=== PATIENT | male | born 1970 | race Caucasian/White ===

== ENCOUNTER 2022-06-27 20:30 | Inpatient (IN) | payer SELFPAY ==
[2022-06-27] MEDS ORDERED: SODIUM CHLORIDE 0.9% 500 ML INFUS.BAG IV ONE (21:54)
[2022-06-27 22:47] LABS: MEAN CELL VOLUME 54.4 fl (80-96); MEAN PLT VOLUME 7.6 fl (7.5-11.1); PLATELET COUNT 371.1 10^3/uL (134-434); RBC 2.72 10^6/uL (4.00-5.60); WHITE BLOOD COUNT 7.8 10^3/uL (4.0-10.8)
[2022-06-27 22:50] LABS: MCH 16.3 pg (25.7-33.7)
[2022-06-27 22:51] LABS: HEMOGLOBIN 4.4 G/dL (11.7-16.9)
[2022-06-27 22:52] LABS: HEMATOCRIT 14.8 % (35.4-49)
[2022-06-27] MEDS ORDERED: CEFTRIAXONE 1 GM in DEXTROSE 5%-WATER - 50 ML IVPB ONE (23:00)
[2022-06-27 23:05] LABS: ANISOCYTOSIS 2+; PLATELET ESTIMATE ADEQUATE; SICKELED CELLS FEW
[2022-06-27 23:07] LABS: ALBUMIN 3.7 g/dl (3.4-5.0); BILIRUBIN,TOTAL 1.2 mg/dl (0.2-1); CALCIUM 9.2 mg/dl (8.5-10); CREATININE 1.6 mg/dl (0.55-1.3)
[2022-06-27] MEDS ORDERED: cefTRIAXone SODIUM 1 GM VIAL ONE (23:22)
[2022-06-28 02:34] VITALS: BMI 26.9
[2022-06-28] MEDS: TAMSULOSIN HCL 0.4 MG CAP PO SCH (09:00)
[2022-06-28] MEDS: CEFTRIAXONE 1 GM in DEXTROSE 5%-WATER - 50 ML IVPB SCH (11:23)
[2022-06-28 14:11] LABS: HEMATOCRIT 19.6 % (35.4-49); HEMOGLOBIN 6.1 G/dL (11.7-16.9); MCHC 31.2 g/dl (32.0-35.9); MEAN PLT VOLUME 7.7 fl (7.5-11.1); PLATELET COUNT 363.4 10^3/uL (134-434); RBC 3.22 10^6/uL (4.00-5.60); RDW 29.1 % (11.9-15.9); WHITE BLOOD COUNT 9.5 10^3/uL (4.0-10.8)
[2022-06-28 14:20] LABS: ALBUMIN 3.5 g/dl (3.4-5.0); BILIRUBIN,TOTAL 0.9 mg/dl (0.2-1); CALCIUM 8.3 mg/dl (8.5-10); CREATININE 1.3 mg/dl (0.55-1.3); TOT PROT 5.9 g/dl (6.4-8.2)
[2022-06-28] MEDS ORDERED: ACETAMINOPHEN 325 MG TABLET (FP) PO PRN (14:43)
[2022-06-28 14:45] LABS: ANISOCYTOSIS 2+; PLATELET ESTIMATE ADEQUATE
[2022-06-29 00:49] LABS: BASO % 0.5 % (0-2.0); EOS % 0.4 % (0-4.5); HEMATOCRIT 20.6 % (35.4-49); LYMPH % 18.9 % (8-40); MCHC 30.7 g/dl (32.0-35.9); MEAN CELL VOLUME 60.1 fl (80-96); MEAN PLT VOLUME 8.3 fl (7.5-11.1); MONO % 12.7 % (3.8-10.2); NEUT % 67.5 % (42.8-82.8); PLATELET COUNT 287 10^3/uL (134-434); RBC 3.43 M/mm3 (4.00-5.60); WHITE BLOOD COUNT 8.1 K/mm3 (4.0-10.0)
[2022-06-29 00:59] LABS: MCH 18.5 pg (25.7-33.7)
[2022-06-29 01:02] LABS: HEMOGLOBIN 6.3 GM/dL (11.7-16.9)
[2022-06-29] MEDS: TAMSULOSIN HCL 0.4 MG CAP PO SCH (08:29)
[2022-06-29] MEDS: CEFTRIAXONE 1 GM in DEXTROSE 5%-WATER - 50 ML IVPB SCH (09:14)
[2022-06-29 09:32] LABS: BASO % 0.7 % (0-2.0); EOS % 0.3 % (0-4.5); HEMATOCRIT 23.9 % (35.4-49); HEMOGLOBIN 7.4 GM/dL (11.7-16.9); LYMPH % 14.1 % (8-40); MCHC 31.1 g/dl (32.0-35.9); MEAN PLT VOLUME 8.2 fl (7.5-11.1); MONO % 11.6 % (3.8-10.2); NEUT % 73.3 % (42.8-82.8); PLATELET COUNT 288 10^3/uL (134-434); RBC 3.85 M/mm3 (4.00-5.60); RDW 30.9 % (11.9-15.9); WHITE BLOOD COUNT 7.3 K/mm3 (4.0-10.0)
[2022-06-29 09:42] LABS: MCH 19.3 pg (25.7-33.7)
[2022-06-29 09:47] LABS: ALBUMIN 3.2 g/dl (3.4-5.0); CALCIUM 8.7 mg/dL (8.5-10.1)
[2022-06-29 09:50] LABS: BLOOD UREA NITROGEN 18.8 mg/dL (7-18)
[2022-06-29 09:52] LABS: TOT PROT 5.8 g/dl (6.4-8.2)
[2022-06-29 09:53] LABS: CREATININE 1.2 mg/dL (0.55-1.3)
[2022-06-29 09:54] LABS: BILIRUBIN,TOTAL 0.9 mg/dL (0.2-1)
[2022-06-29] MEDS ORDERED: SODIUM CHLORIDE 0.45%/POT 20 MEQ/1,000 ML INFUS.BAG IV SCH (13:45)
[2022-06-29] MEDS ORDERED: SODIUM CHLORIDE 0.9% 500 ML INFUS.BAG IV ONE (18:50)
[2022-06-30] MEDS: CEFTRIAXONE 1 GM in DEXTROSE 5%-WATER - 50 ML IVPB SCH (09:57)
[2022-06-30] MEDS: TAMSULOSIN HCL 0.4 MG CAP PO SCH (09:57)
[2022-06-30 10:49] LABS: BASO % 0.9 % (0-2.0); EOS % 1.3 % (0-4.5); HEMATOCRIT 23.8 % (35.4-49); HEMOGLOBIN 7.3 GM/dL (11.7-16.9); LYMPH % 14.8 % (8-40); MCHC 30.6 g/dl (32.0-35.9); MEAN CELL VOLUME 62.2 fl (80-96); MEAN PLT VOLUME 8.2 fl (7.5-11.1); MONO % 11.2 % (3.8-10.2); NEUT % 71.8 % (42.8-82.8); PLATELET COUNT 295 10^3/uL (134-434); RBC 3.82 M/mm3 (4.00-5.60); RDW 31.5 % (11.9-15.9); WHITE BLOOD COUNT 6.9 K/mm3 (4.0-10.0)
[2022-06-30 11:26] LABS: CALCIUM 8.6 mg/dL (8.5-10.1)
[2022-06-30 11:27] LABS: ALBUMIN 3.3 g/dl (3.4-5.0)
[2022-06-30 11:32] LABS: BILIRUBIN,TOTAL 0.7 mg/dL (0.2-1); TOT PROT 5.8 g/dl (6.4-8.2)
[2022-06-30] MEDS ORDERED: ONDANSETRON 4 MG/2 ML VIAL IVPUSH PRN ×2 (12:44→15:32)
[2022-06-30] MEDS ORDERED: LACTATED RINGERS SOLUTION 1,000 ML IV SCH (12:45)
[2022-06-30] MEDS ORDERED: MIDAZOLAM HCL 2 MG/2 ML SINGLE DOSE VIAL ONE (13:30)
[2022-06-30] MEDS ORDERED: PROPOFOL 40 ML ONE (13:30)
[2022-06-30] MEDS ORDERED: SUCCINYLCHOLINE CHLORIDE 200 MG/10 ML SYRINGE ONE (13:52)
[2022-06-30] MEDS ORDERED: ONDANSETRON 4 MG/2 ML VIAL ONE (14:22)
[2022-06-30] MEDS ORDERED: DEXAMETHASONE SOD PHOSPHATE 4 MG/1 ML VIAL ONE (14:22)
[2022-06-30] MEDS ORDERED: GLYCOPYRROLATE 0.2 MG/1 ML VIAL ONE (14:25)
[2022-06-30] MEDS ORDERED: PROPOFOL 20 ML ONE (14:29)
[2022-07-01] MEDS: TAMSULOSIN HCL 0.4 MG CAP PO SCH (09:26)
[2022-07-01] MEDS: CEFTRIAXONE 1 GM in DEXTROSE 5%-WATER - 50 ML IVPB SCH (09:26)
[2022-07-01 09:53] LABS: BASO % 0.4 % (0-2.0); EOS % 0.7 % (0-4.5); HEMATOCRIT 25.2 % (35.4-49); HEMOGLOBIN 7.8 GM/dL (11.7-16.9); LYMPH % 15.2 % (8-40); MCHC 30.7 g/dl (32.0-35.9); MEAN CELL VOLUME 62.9 fl (80-96); MEAN PLT VOLUME 8.3 fl (7.5-11.1); MONO % 9.4 % (3.8-10.2); NEUT % 74.3 % (42.8-82.8); PLATELET COUNT 312 10^3/uL (134-434); RBC 4.01 M/mm3 (4.00-5.60); RDW 32.1 % (11.9-15.9); WHITE BLOOD COUNT 9.3 K/mm3 (4.0-10.0)
[2022-07-01 09:54] LABS: MCH 19.3 pg (25.7-33.7)
[2022-07-01 11:21] LABS: BLOOD UREA NITROGEN 15.2 mg/dL (7-18); CALCIUM 8.6 mg/dL (8.5-10.1); MAGNESIUM 2.4 mg/dL (1.8-2.4)
[2022-07-01 11:22] LABS: ALBUMIN 3.2 g/dl (3.4-5.0)
[2022-07-01 11:24] LABS: PHOSPHOROUS 4.3 mg/dL (2.5-4.9)
[2022-07-01 11:25] LABS: CREATININE 0.9 mg/dL (0.55-1.3)
[2022-07-01 11:26] LABS: BILIRUBIN,TOTAL 0.7 mg/dL (0.2-1)
[2022-07-01 12:56] LABS: ANISOCYTOSIS 2+; MACROCYTOSIS 0; OVALOCYTE 2+; TARGET CELLS 1+
[2022-07-02] MEDS: TAMSULOSIN HCL 0.4 MG CAP PO SCH (08:09)
[2022-07-02 09:08] LABS: BASO % 0.4 % (0-2.0); EOS % 1.1 % (0-4.5); HEMATOCRIT 27.4 % (35.4-49); HEMOGLOBIN 8.2 GM/dL (11.7-16.9); LYMPH % 15.4 % (8-40); MCHC 30.1 g/dl (32.0-35.9); MEAN PLT VOLUME 8.7 fl (7.5-11.1); MONO % 4.6 % (3.8-10.2); NEUT % 78.5 % (42.8-82.8); PLATELET COUNT 324 10^3/uL (134-434); RBC 4.34 M/mm3 (4.00-5.60); RDW 32.4 % (11.9-15.9); WHITE BLOOD COUNT 8.3 K/mm3 (4.0-10.0)
[2022-07-02 09:13] LABS: MCH 18.9 pg (25.7-33.7)
[2022-07-02 09:27] LABS: CALCIUM 8.5 mg/dL (8.5-10.1)
[2022-07-02 09:28] LABS: BLOOD UREA NITROGEN 17.3 mg/dL (7-18)
[2022-07-02] MEDS: CEFTRIAXONE 1 GM in DEXTROSE 5%-WATER - 50 ML IVPB SCH (10:00)
[2022-07-03] MEDS: TAMSULOSIN HCL 0.4 MG CAP PO SCH (08:36)
[2022-07-03] MEDS: CEFTRIAXONE 1 GM in DEXTROSE 5%-WATER - 50 ML IVPB SCH (09:55)
[2022-07-03 12:01] LABS: EOS % 1.6 % (0-4.5); HEMATOCRIT 26.4 % (35.4-49); HEMOGLOBIN 8.2 GM/dL (11.7-16.9); LYMPH % 12.1 % (8-40); MCHC 30.9 g/dl (32.0-35.9); MEAN CELL VOLUME 63.1 fl (80-96); MEAN PLT VOLUME 8.6 fl (7.5-11.1); MONO % 10.7 % (3.8-10.2); NEUT % 74.6 % (42.8-82.8); PLATELET COUNT 325 10^3/uL (134-434); RBC 4.19 M/mm3 (4.00-5.60); RDW 32.1 % (11.9-15.9); WHITE BLOOD COUNT 8.2 K/mm3 (4.0-10.0)
[2022-07-03 12:13] LABS: MCH 19.5 pg (25.7-33.7)
[2022-07-03 12:51] LABS: CALCIUM 8.7 mg/dL (8.5-10.1)
[2022-07-03 12:52] LABS: BLOOD UREA NITROGEN 17.7 mg/dL (7-18)
[2022-07-04] MEDS: TAMSULOSIN HCL 0.4 MG CAP PO SCH (08:48)
[2022-07-04 10:22] LABS: BASO % 1.5 % (0-2.0); EOS % 2.5 % (0-4.5); HEMATOCRIT 29.6 % (35.4-49); HEMOGLOBIN 8.7 GM/dL (11.7-16.9); LYMPH % 21.6 % (8-40); MCHC 29.5 g/dl (32.0-35.9); MEAN CELL VOLUME 63.3 fl (80-96); MEAN PLT VOLUME 8.7 fl (7.5-11.1); MONO % 8.9 % (3.8-10.2); NEUT % 65.5 % (42.8-82.8); PLATELET COUNT 463 10^3/uL (134-434); RBC 4.68 M/mm3 (4.00-5.60); RDW 32.2 % (11.9-15.9); WHITE BLOOD COUNT 8.6 K/mm3 (4.0-10.0)
[2022-07-04 10:25] LABS: MCH 18.6 pg (25.7-33.7)
[2022-07-04 10:35] LABS: BLOOD UREA NITROGEN 17.1 mg/dL (7-18); CALCIUM 8.9 mg/dL (8.5-10.1)
[2022-07-04 10:40] LABS: CREATININE 1.1 mg/dL (0.55-1.3)
[2022-07-04 11:11] LABS: ANISOCYTOSIS 3+; MACROCYTOSIS 0
[2022-07-05] MEDS: TAMSULOSIN HCL 0.4 MG CAP PO SCH (08:13)
[2022-07-05 08:52] LABS: BASO % 1.3 % (0-2.0); EOS % 2.2 % (0-4.5); HEMATOCRIT 25.1 % (35.4-49); HEMOGLOBIN 7.4 GM/dL (11.7-16.9); LYMPH % 16.4 % (8-40); MCHC 29.4 g/dl (32.0-35.9); MEAN PLT VOLUME 8.7 fl (7.5-11.1); MONO % 7.8 % (3.8-10.2); NEUT % 72.3 % (42.8-82.8); PLATELET COUNT 371 10^3/uL (134-434); RBC 3.99 M/mm3 (4.00-5.60); RDW 31.9 % (11.9-15.9); WHITE BLOOD COUNT 7.4 K/mm3 (4.0-10.0)
[2022-07-05 09:06] LABS: MCH 18.5 pg (25.7-33.7)
[2022-07-05 10:03] LABS: CALCIUM 8.8 mg/dL (8.5-10.1)
[2022-07-05 10:04] LABS: BLOOD UREA NITROGEN 20.8 mg/dL (7-18)
[2022-07-05] MEDS: FERROUS SO4 325 MG TABLET (FP) PO SCH (12:24)
[2022-07-05] MEDS: DOCUSATE SODIUM 100 MG CAPSULE (FP) PO SCH (21:26)
[2022-07-06] MEDS: TAMSULOSIN HCL 0.4 MG CAP PO SCH (09:08)
[2022-07-06] MEDS: FERROUS SO4 325 MG TABLET (FP) PO SCH (09:08)
[2022-07-06] MEDS: DOCUSATE SODIUM 100 MG CAPSULE (FP) PO SCH ×2 (09:08→21:48)
[2022-07-06 09:46] LABS: BASO % 1.6 % (0-2.0); HEMATOCRIT 27.6 % (35.4-49); HEMOGLOBIN 8.5 GM/dL (11.7-16.9); LYMPH % 20.9 % (8-40); MCHC 30.6 g/dl (32.0-35.9); MEAN CELL VOLUME 63.2 fl (80-96); MEAN PLT VOLUME 8.6 fl (7.5-11.1); MONO % 8.2 % (3.8-10.2); NEUT % 67.3 % (42.8-82.8); PLATELET COUNT 480 10^3/uL (134-434); RBC 4.37 M/mm3 (4.00-5.60); RDW 31.8 % (11.9-15.9); WHITE BLOOD COUNT 8.7 K/mm3 (4.0-10.0)
[2022-07-06 09:58] LABS: MCH 19.4 pg (25.7-33.7)
[2022-07-06 10:07] LABS: CALCIUM 9.4 mg/dL (8.5-10.1)
[2022-07-06 10:11] LABS: CREATININE 1.2 mg/dL (0.55-1.3)
[2022-07-07] MEDS: FERROUS SO4 325 MG TABLET (FP) PO SCH (09:24)
[2022-07-07] MEDS: TAMSULOSIN HCL 0.4 MG CAP PO SCH (09:24)
[2022-07-07] MEDS: DOCUSATE SODIUM 100 MG CAPSULE (FP) PO SCH ×2 (09:24→22:08)
[2022-07-07 10:20] LABS: BASO % 2.5 % (0-2.0); EOS % 2.5 % (0-4.5); HEMATOCRIT 22.9 % (35.4-49); HEMOGLOBIN 7.2 GM/dL (11.7-16.9); LYMPH % 20.8 % (8-40); MCHC 31.5 g/dl (32.0-35.9); MEAN CELL VOLUME 62.8 fl (80-96); MEAN PLT VOLUME 8.3 fl (7.5-11.1); MONO % 7.2 % (3.8-10.2); PLATELET COUNT 433 10^3/uL (134-434); RBC 3.65 M/mm3 (4.00-5.60); RDW 31.4 % (11.9-15.9); WHITE BLOOD COUNT 7.3 K/mm3 (4.0-10.0)
[2022-07-07 10:26] LABS: INR 1.15 (0.83-1.09); PROTHROMBIN TIME (PATIENT) 13.3 SEC (9.7-13.0)
[2022-07-07 10:28] LABS: ADD RBC MORPHOLOGY YES; MCH 19.8 pg (25.7-33.7)
[2022-07-07 10:49] LABS: CALCIUM 8.7 mg/dL (8.5-10.1)
[2022-07-07 10:50] LABS: BLOOD UREA NITROGEN 15.8 mg/dL (7-18)
[2022-07-07 13:45] LABS: PLATELET ESTIMATE ADEQUATE
[2022-07-08] MEDS ORDERED: IRON SUCROSE INJECTION 200 MG in SODIUM CHLORIDE 90 ML IVPB SCH (08:00)
[2022-07-08] MEDS: TAMSULOSIN HCL 0.4 MG CAP PO SCH (09:33)
[2022-07-08] MEDS: FERROUS SO4 325 MG TABLET (FP) PO SCH (09:33)
[2022-07-08] MEDS: DOCUSATE SODIUM 100 MG CAPSULE (FP) PO SCH ×2 (09:33→21:19)
[2022-07-08 10:10] LABS: INR 1.1 (0.83-1.09); PROTHROMBIN TIME (PATIENT) 12.7 SEC (9.7-13.0)
[2022-07-08 10:11] LABS: ACTIVATED PTT 27.2 SECONDS (25.2-36.5)
[2022-07-08 10:16] LABS: CALCIUM 8.8 mg/dL (8.5-10.1)
[2022-07-08 10:20] LABS: CREATININE 1.1 mg/dL (0.55-1.3)
[2022-07-08 10:30] LABS: BASO % 1.2 % (0-2.0); EOS % 1.6 % (0-4.5); HEMATOCRIT 24.4 % (35.4-49); HEMOGLOBIN 7.4 GM/dL (11.7-16.9); LYMPH % 19.7 % (8-40); MCHC 30.4 g/dl (32.0-35.9); MEAN CELL VOLUME 63.1 fl (80-96); MEAN PLT VOLUME 8.8 fl (7.5-11.1); MONO % 5.7 % (3.8-10.2); NEUT % 71.8 % (42.8-82.8); PLATELET COUNT 568 10^3/uL (134-434); RBC 3.87 M/mm3 (4.00-5.60); RDW 31.3 % (11.9-15.9); WHITE BLOOD COUNT 9.3 K/mm3 (4.0-10.0)
[2022-07-08 10:35] LABS: MCH 19.2 pg (25.7-33.7)
[2022-07-08 11:22] LABS: ANISOCYTOSIS 3+; MACROCYTOSIS 0; OVALOCYTE 1+; TEAR DROP CELLS 1+
[2022-07-08] MEDS ORDERED: PROPOFOL 100 ML ONE (13:34)
[2022-07-08] MEDS ORDERED: MIDAZOLAM HCL 2 MG/2 ML SINGLE DOSE VIAL ONE (13:34)
[2022-07-08] MEDS ORDERED: BUPIVACAINE HCL/PF 0.5% (5MG/ML) 10 ML VIAL ONE (13:44)
[2022-07-08] MEDS ORDERED: LIDOCAINE HCL 2% JELLY 11 ML TP ONE (13:44)
[2022-07-08] MEDS ORDERED: GEMCITABINE HCL 1 GM/50 ML DISP.SYRIN (OR USE ONLY) IS SCH (13:45)
[2022-07-08] MEDS ORDERED: ceFAZolin SODIUM 1 GM VIAL ONE (14:09)
[2022-07-08] MEDS ORDERED: ceFAZolin SODIUM 1 GM VIAL IVPB ONE (14:10)
[2022-07-08] MEDS ORDERED: PROPOFOL 40 ML ONE (15:01)
[2022-07-08] MEDS ORDERED: LIDOCAINE HCL 2% JELLY 10 ML CARTRIDGE TP ONE ×2 (16:20)
[2022-07-09] MEDS: TAMSULOSIN HCL 0.4 MG CAP PO SCH (09:27)
[2022-07-09] MEDS: DOCUSATE SODIUM 100 MG CAPSULE (FP) PO SCH ×3 (09:27→21:32)
[2022-07-09 09:33] LABS: BASO % 0.8 % (0-2.0); EOS % 0.5 % (0-4.5); LYMPH % 6.7 % (8-40); MEAN CELL VOLUME 63.4 fl (80-96); MEAN PLT VOLUME 8.7 fl (7.5-11.1); MONO % 4.7 % (3.8-10.2); NEUT % 87.3 % (42.8-82.8); PLATELET COUNT 490 10^3/uL (134-434); RBC 3.47 M/mm3 (4.00-5.60); RDW 31.9 % (11.9-15.9); WHITE BLOOD COUNT 10.9 K/mm3 (4.0-10.0)
[2022-07-09 09:40] LABS: HEMOGLOBIN 6.6 GM/dL (11.7-16.9)
[2022-07-09 10:13] LABS: ALBUMIN 2.9 g/dl (3.4-5.0); BILIRUBIN,TOTAL 0.8 mg/dL (0.2-1); BLOOD UREA NITROGEN 18.5 mg/dL (7-18); CALCIUM 8.7 mg/dL (8.5-10.1); CREATININE 1.2 mg/dL (0.55-1.3); TOT PROT 5.5 g/dl (6.4-8.2)
[2022-07-09 23:22] VITALS: RESP 18
[2022-07-10] MEDS: TAMSULOSIN HCL 0.4 MG CAP PO SCH (08:29)
[2022-07-10] MEDS: DOCUSATE SODIUM 100 MG CAPSULE (FP) PO SCH (10:23)
[2022-07-10 11:05] LABS: BASO % 1.3 % (0-2.0); EOS % 1.3 % (0-4.5); HEMATOCRIT 26.1 % (35.4-49); HEMOGLOBIN 8.3 GM/dL (11.7-16.9); LYMPH % 14.4 % (8-40); MCH 21.5 pg (25.7-33.7); MCHC 31.7 g/dl (32.0-35.9); MEAN CELL VOLUME 67.8 fl (80-96); MEAN PLT VOLUME 8.3 fl (7.5-11.1); MONO % 6.9 % (3.8-10.2); NEUT % 76.1 % (42.8-82.8); PLATELET COUNT 425 10^3/uL (134-434); RBC 3.85 M/mm3 (4.00-5.60); RDW 31.9 % (11.9-15.9); WHITE BLOOD COUNT 7.7 K/mm3 (4.0-10.0)
[2022-07-10 11:26] LABS: CALCIUM 8.4 mg/dL (8.5-10.1)
[2022-07-10 11:27] LABS: BLOOD UREA NITROGEN 15.4 mg/dL (7-18)
[2022-07-10 13:58] VITALS: BP 120/80; PULSE 74; TEMP 97.9
== END 2022-07-10 17:16 | disposition home or self-care (01) | DRG 446 ==
LOC: FER 20:30 → FM/S 06-28 02:02 → J6S 06-28 21:43
PROVIDERS: ADMIT Internal Medicine
PROC: 30233N1 Transfusion of Nonautologous Red Blood Cells into Peripheral Vein, Percutaneous Approach (ICD-10-PCS; 2022-06-28)
PROC: 0TBC8ZZ Excision of Bladder Neck, Via Natural or Artificial Opening Endoscopic (ICD-10-PCS; 2022-06-30)
PROC: 0TCC8ZZ Extirpation of Matter from Bladder Neck, Via Natural or Artificial Opening Endoscopic (ICD-10-PCS; 2022-06-30)
PROC: 0TBB8ZZ Excision of Bladder, Via Natural or Artificial Opening Endoscopic (ICD-10-PCS; principal; 2022-06-30 13:00)
PROC: 0TBB8ZZ Excision of Bladder, Via Natural or Artificial Opening Endoscopic (ICD-10-PCS; 2022-07-08)
DX: C67.9 Malignant neoplasm of bladder, unspecified (principal); D62 Acute posthemorrhagic anemia; R31.0 Gross hematuria; R33.9 Retention of urine, unspecified; N13.30 Unspecified hydronephrosis; N32.89 Other specified disorders of bladder; F17.210 Nicotine dependence, cigarettes, uncomplicated
CPT/HCPCS: 36415; 36430; 71045-TC-FY; 71260-TC; 74177-TC; 76775-TC; 76856-TC; 80048; 80053; 81003; 81015; 82272; 82728; 83540; 83550; 83735; 84100; 84153; 85025; 85045; 85610; 85730; 86850; 86900; 86901; 86922; 87086; 87491; 87591; 88108; 88305-TC; 88307-TC; 93005; 94760; 99285-25; C9803-CS; J1756; J3480; P9058; Q9967; U0003; U0005